=== PATIENT | female | born 1950 | race Caucasian/White ===

== ENCOUNTER 2021-02-19 13:41 | Outpatient (CLI) | payer OTHER ==
[~2021-02-19 13:41] MED LIST: ACTONEL5 MG PO; KALETRA PO; KEPPRA500 MG PO; LEUCOVORIN CALCI5 MG PO; TRILEPTAL150 MG PO; [UNRECOGNIZED DRUG - OTHER]
== END 2021-02-19 13:55 | disposition home or self-care (01) ==
LOC: MAMO-SONO 13:41
PROVIDERS: ATTEND Internal Medicine Hematology & Oncology
DX: Z12.31 Encounter for screening mammogram for malignant neoplasm of breast (principal); D75.1 Secondary polycythemia; B20 Human immunodeficiency virus [HIV] disease; G40.009 Localization-related (focal) (partial) idiopathic epilepsy and epileptic syndromes with seizures of localized onset, not intractable, without status epilepticus; B58.2 Toxoplasma meningoencephalitis; E04.2 Nontoxic multinodular goiter; G30.0 Alzheimer's disease with early onset; G30.8 Other Alzheimer's disease
CPT/HCPCS: 70551

== ENCOUNTER 2021-04-21 11:28 | Outpatient (CLI) | payer OTHER | END 2021-04-21 11:30 | disposition home or self-care (01) | LOC: SONOGRAMA 11:28 | PROVIDERS: ATTEND Pathology Anatomic Pathology & Clinical Pathology | DX: E03.8 Other specified hypothyroidism (principal) ==

== ENCOUNTER 2021-08-18 12:20 | Outpatient (CLI) | payer OTHER | END 2021-08-18 12:22 | disposition home or self-care (01) | LOC: SONOGRAMA 12:20 | PROVIDERS: ATTEND Pathology Anatomic Pathology & Clinical Pathology | DX: E04.1 Nontoxic single thyroid nodule (principal) ==

== ENCOUNTER 2022-11-30 16:29 | Inpatient (IN) | payer OTHER ==
[~2022-11-30] VITALS: Ht 160 cm; Wt 61.2 kg
--- NOTE | 2022-11-30 17:03 | NUR ---
SE RECIBE PTE ALERTA Y ORIENTADA REFIERE QUE HARVEY PRESENTADO VARIAS DIAREAS EN EL W[place] DE [place] SE ADRIANA VITALES Y SE KAITLYN EN [place].
--- NOTE | 2022-11-30 18:42 | NUR ---
PTE ALERTA Y ORIENTADA X3 SE REALIZAN MUESTRAS DE LAB LIZZY ORDEN MEDICA Y BAJO MEDIDAS ASEPTICAS. SE ADMINITRA MEDICAMENTO LIZZY ORDEN MEDICA. PTE TRABAJADA POR SUDHAKAR NOLAN.
== END 2022-12-08 15:26 | disposition home or self-care (01) | DRG 758 ==
LOC: ER 16:29 → MEDI 20:53 → MEDJ 12-07 08:08 → MEDI 12-07 08:38
PROVIDERS: ADMIT Specialist; ATTEND Specialist
PROC: BW2110Z Computerized Tomography (CT Scan) of Abdomen and Pelvis using Low Osmolar Contrast, Unenhanced and Enhanced (ICD-10-PCS; principal; 2022-11-30)
PROC: 02HV33Z Insertion of Infusion Device into Superior Vena Cava, Percutaneous Approach (ICD-10-PCS; 2022-12-01)
DX: B37.49 Other urogenital candidiasis (principal); A09 Infectious gastroenteritis and colitis, unspecified; E87.6 Hypokalemia; I10 Essential (primary) hypertension; E11.9 Type 2 diabetes mellitus without complications; Z21 Asymptomatic human immunodeficiency virus [HIV] infection status; Z79.899 Other long term (current) drug therapy

== ENCOUNTER 2023-01-05 11:46 | Inpatient (IN) | payer OTHER ==
[~2023-01-05] VITALS: Ht 154.9 cm; Wt 40.8 kg
[2023-01-05] MEDS ORDERED: CHILDREN'S ASPI81 MG PO (13:02)
[2023-01-05] MEDS ORDERED: PEPCID AC20 MG PO (13:03)
[2023-01-05] MEDS ORDERED: CALTRATE 600 +1 EAC1 PO (13:03)
[2023-01-05] MEDS ORDERED: TRIUMEQ TABLET1 EACH PO (13:04)
[2023-01-05] MEDS ORDERED: MEGESTROL625 MG/5 M PO (13:04)
--- NOTE | 2023-01-05 13:05 | NUR ---
PTE ALERTA EN COMPANIA DE FAMILIARES LOS CUALES REFIEREN MUMTAZ ESTADO EN JANEL MEDICA CON DR.MARCUS BIRCH.FAMILIAR REFIERE REALIZA REFERIDO MEDICO PARA ADMISION.FAMILIAR REFIERE PTE PRESENTO DIARREAS EN LAS ULTIMAS SEMANAS.FAMILIAR REFIERE PTE TIENE ULCERAS EN AMBOS GLUTEOS.SE KAITLYN PTE ESTABLE BAJO TEAGUE CONDICION.
== END 2023-01-12 19:23 | disposition home or self-care (01) | DRG 853 ==
LOC: ER 11:46 → MEDI 16:12 → MEDJ 01-08 17:02
PROVIDERS: ADMIT Specialist; ATTEND Specialist
PROC: 0JD70ZZ Extraction of Back Subcutaneous Tissue and Fascia, Open Approach (ICD-10-PCS; principal; 2023-01-06)
PROC: 02HV33Z Insertion of Infusion Device into Superior Vena Cava, Percutaneous Approach (ICD-10-PCS; 2023-01-06)
PROC: 8E0ZXY6 Isolation (ICD-10-PCS; 2023-01-08)
DX: A41.9 Sepsis, unspecified organism (principal); L89.154 Pressure ulcer of sacral region, stage 4; A04.71 Enterocolitis due to Clostridium difficile, recurrent; N39.0 Urinary tract infection, site not specified; Z66 Do not resuscitate; I10 Essential (primary) hypertension; E06.3 Autoimmune thyroiditis; Z21 Asymptomatic human immunodeficiency virus [HIV] infection status